=== PATIENT | male | born 1980 | race Caucasian/White ===

== ENCOUNTER 2024-03-07 14:12 | Emergency (ER) | payer BC ==
[2024-03-07 14:20] VITALS: BP 167/84; PULSE 78; RESP 17; TEMP 98; BMI 24.3
[2024-03-07] MEDS ORDERED: METHOCARBAMOL 500 MG TABLET ONE (15:08)
[2024-03-07] MEDS ORDERED: KETOROLAC TROMETHAMINE 30 MG/1 ML VIAL ONE (15:08)
[2024-03-07] MEDS ORDERED: ACETAMINOPHEN 500 MG TABLET (FP) ONE (15:08)
[2024-03-07] MEDS: METHOCARBAMOL 750 MG TABLET PO ONE (15:11)
[2024-03-07] MEDS: KETOROLAC TROMETHAMINE 30 MG/1 ML VIAL IM ONE (15:12)
[2024-03-07] MEDS: ACETAMINOPHEN 500 MG TABLET (FP) PO ONE (15:12)
== END 2024-03-07 15:48 | disposition home or self-care (01) ==
LOC: JERFT 14:12
PROC: 3E0233Z Introduction of Anti-inflammatory into Muscle, Percutaneous Approach (ICD-10-PCS; principal; 2024-03-07)
DX: M54.50 Low back pain, unspecified (principal); M54.2 Cervicalgia; Y04.8XXA Assault by other bodily force, initial encounter
CPT/HCPCS: 99284-25